=== PATIENT | female | born 1970 | race Caucasian/White ===

== ENCOUNTER → 2018-04-21 11:53 | Outpatient (CLI) | payer OTHER, SELFPAY ==
[2018-04-21 16:18] LABS: Ferritin 16 ng/mL (8-252); Free T3 2.2 pg/mL (2.18-3.98); Iron 120 ug/dL (50-170); Iron Binding Capacity,Total 387 ug/dL (250-450); T4 Free Direct 0.85 ng/dL (0.76-1.46); Thyroid Stim Hormone (TSH) 2.14 uIU/mL (0.358-3.74)
[2018-04-21 16:34] LABS: Vitamin B12 872 pg/mL (211-911); Vitamin D,25 Hydroxy 23.2 ng/mL (29.95-100.01)
[2018-04-21 17:39] LABS: Absolute Lymphocyte Count 1.88 X10^3/ul (0.83-4.51); Absolute Neutrophil Count 4.5 X10^3/uL (2.0-7.7); Basophil# 0.01 X10^3/uL; Basophil% 0.1 % (0-1); Eosinophil# 0.05 X10^3/uL; Eosinophils% 0.7 % (0-5); Hematocrit 39.7 % (37-47); Hemoglobin 12.6 g/dl (12.0-15.0); Lymphocyte # 1.88 X10^3/ul (4.0); Lymphocyte % 27.9 % (19-41); Mean Corp Hgb Conc 31.7 g/gl (32-36); Mean Corpuscular Hgb 31.3 pg (27.0-32.0); Mean Corpuscular Volume 98.5 fL (81-99); Mean Platelet Vol. 9.7 fl (6.2-12.0); Monocyte# 0.33 X10^3/uL; Monocyte% 4.9 % (0-10); Neutrophil # 4.45 X10^3/uL (2.7-7.7); Neutrophil % 66.3 % (47-70); Platelet Count 299 K/mm3 (150-450); RBC Distribution Width SD 42.9 fl (35.1-43.9); Red Blood Count 4.03 M/mm3 (4.2-5.4); White Blood Count 6.7 K/mm3 (4.4-11.0)
[2018-04-21 17:40] LABS: POSITIVE COUNT NO; POSITIVE DIFFERENTIAL NO; POSITIVE MORPHOLOGY NO
== END ==
PROVIDERS: Visit Provider Family Medicine
DX: E03.9 Hypothyroidism, unspecified (principal); R53.83 Other fatigue; E28.2 Polycystic ovarian syndrome
CPT/HCPCS: 36415; 82306; 82607; 82728; 83540; 83550; 84439; 84443; 84481; 85025

== ENCOUNTER → 2018-12-31 13:48 | Outpatient (CLI) | payer OTHER, SELFPAY ==
[2019-01-05 18:14] LABS: HPV Reflexed? NOT INDICATED
== END ==
PROVIDERS: Family Provider Family Medicine; PCP Family Medicine; Visit Provider Family Medicine
DX: Z12.4 Encounter for screening for malignant neoplasm of cervix (principal)
CPT/HCPCS: 88175; G0145

== ENCOUNTER → 2019-01-28 11:18 | Outpatient (CLI) | payer OTHER, SELFPAY ==
--- NOTE | 2019-01-28 11:20 | BI_ITS ---
MAMMOGRAPHY - BILATERAL SCREENING REASON FOR EXAM: Female, 48 years old. Routine annual screening examination. PERTINENT HISTORY: Non-contributory. TECHNIQUE: Digital bilateral breast cali (3D mammographic acquisition) in the CC and MLO projections. 2-D mediolateral oblique (MLO) and craniocaudad (CC) views of both breasts were obtained. CAD: Full Field Digital Mammography with Computer Added Detection was performed. COMPARISON: Comparison is made with prior outside examination dated February 04, 2017. FINDINGS: Breast Composition: The breasts are heterogeneously dense, which may obscure small masses. There is a 9.3 mm well-defined nodule with a what appears to be a central notch in the deep slightly medial aspect of the left breast. This is not visualized with certainty on the mediolateral oblique view. Correlation with ultrasound is recommended. No other significant abnormalities are identified. BI/SCREEN MAMM (CAD) W/CALI BILAT IMPRESSION: 19.3 mm well-defined nodule seen in the deep slightly medial portion of the left breast on the craniocaudad view. Correlation with ultrasound is recommended. ASSESSMENT CATEGORY: BIRADS Category 0: Incomplete. Need additional imaging evaluation. A letter regarding these results will be sent to the patient by the facility within 30 days. Approximately 10% of breast cancers are not detected by mammography. A normal mammogram should not delay biopsy of a clinically suspicious abnormality. [id number] Electronically Signed: Mckinley Cisneros, at 13:13 EST , Service support ,
== END ==
PROVIDERS: Family Provider Family Medicine; PCP Family Medicine; Referring Provider Family Medicine; Visit Provider Family Medicine
DX: Z12.31 Encounter for screening mammogram for malignant neoplasm of breast (principal)
CPT/HCPCS: 77063; 77067

== ENCOUNTER → 2019-02-04 10:28 | Outpatient (CLI) | payer OTHER, SELFPAY ==
--- NOTE | 2019-02-04 10:45 | US_ITS ---
STUDY: ULTRASOUND BREAST - LEFT REASON FOR EXAM: Female, 48 years old. TECHNIQUE: Axial and longitudinal images of the LEFT breast were performed with a high resolution ultrasound transducer. # OF IMAGES: 68 COMPARISON: None. FINDINGS: LEFT Breast: There is prominence of the fibroglandular tissue particularly around 11:00. However no evidence of any masses or cyst identified. US/Breast Complete Unilateral IMPRESSION: Negative study Electronically Signed: [place] Jayshree, at 12:30 EST Tel , Service support ,
== END ==
PROVIDERS: Family Provider Family Medicine; PCP Family Medicine; Referring Provider Family Medicine; Visit Provider Family Medicine
DX: N63.20 Unspecified lump in the left breast, unspecified quadrant (principal)
CPT/HCPCS: 76641

== ENCOUNTER → 2020-04-17 08:47 | Outpatient (CLI) | payer OTHER, SELFPAY ==
[2020-04-17 12:18] LABS: Absolute Lymphocyte Count 1.72 X10^3/uL (0.83-4.51); Absolute Neutrophil Count 4.2 X10^3/uL (2.0-7.7); Basophil# 0.03 X10^3/uL; Basophil% 0.5 % (0-1); Eosinophil# 0.07 X10^3/uL; Eosinophils% 1.1 % (0-5); Hematocrit 39.9 % (37-47); Hemoglobin 13.4 g/dL (12.0-15.0); Lymphocyte # 1.72 X10^3/ul (4.0); Lymphocyte % 26.8 % (19-41); Mean Corp Hgb Conc 33.6 g/dL (32-36); Mean Corpuscular Volume 95.2 fL (81-99); Mean Platelet Vol. 10.1 fl (6.2-12.0); Monocyte# 0.39 X10^3/uL; Monocyte% 6.1 % (0-10); NRBC Flagged by Analyzer 0 % (0-5); Neutrophil # 4.17 X10^3/uL (2.7-7.7); Platelet Count 306 K/mm3 (150-450); RBC Distribution Width CV 11.6 % (11.6-14.6); RBC Distribution Width SD 39.8 fl (35.1-43.9); Red Blood Count 4.19 M/mm3 (4.2-5.4); White Blood Count 6.4 K/mm3 (4.4-11.0)
[2020-04-17 12:31] LABS: Vitamin D,25 Hydroxy 39.6 ng/mL
[2020-04-17 12:43] LABS: Cholesterol 197 mg/dL (200); High Density Lipoprotein 73 mg/dL; Triglycerides 44 mg/dL; Very Low Density Lipoprotein 9 mg/dL (5-40)
[2020-04-17 16:08] LABS: Anion Gap 8 (5-15); BUN 12 mg/dL (7-18); BUN/Creat Ratio 15.1 RATIO (10-20); Chloride 107 mmol/L (98-107); Creatinine, Serum 0.79 mg/dL (0.55-1.02); EST Glomerular Filtration Rate 82 mL/min (>60); Est Glom Filt Rate - Afr Amer 100 mL/min (>60); Glucose 67 mg/dL (74-106); Potassium 4.1 mmol/L (3.5-5.1); Sodium Level 137 mmol/L (136-145)
== END ==
PROVIDERS: PCP Family Medicine; Visit Provider Family Medicine
DX: Z00.00 Encounter for general adult medical examination without abnormal findings (principal); E28.2 Polycystic ovarian syndrome; E55.9 Vitamin D deficiency, unspecified; D64.9 Anemia, unspecified
CPT/HCPCS: 36415; 80048; 80061; 82306; 85025

== ENCOUNTER → 2021-09-20 | Outpatient (CLI) | payer OTHER, SELFPAY ==
[2021-09-20 12:35] LABS: Absolute Lymphocyte Count 2.06 X10^3/uL (0.83-4.51); Absolute Neutrophil Count 4.8 X10^3/uL (2.0-7.7); Basophil# 0.02 X10^3/uL; Basophil% 0.3 % (0-1); Eosinophil# 0.11 X10^3/uL; Eosinophils% 1.5 % (0-5); Hematocrit 39.3 % (37-47); Lymphocyte # 2.06 X10^3/ul (0.83-4.51); Lymphocyte % 27.5 % (19-41); Mean Corp Hgb Conc 33.1 g/dL (32-36); Mean Corpuscular Hgb 32.7 pg (27.0-32.0); Mean Platelet Vol. 9.5 fl (6.2-12.0); Monocyte# 0.48 X10^3/uL; Monocyte% 6.4 % (0-10); NRBC Flagged by Analyzer 0 % (0-5); Neutrophil # 4.79 X10^3/uL (2.7-7.7); Neutrophil % 63.9 % (47-70); Platelet Count 388 K/mm3 (150-450); RBC Distribution Width CV 11.9 % (11.6-14.6); RBC Distribution Width SD 43.8 fl (35.1-43.9); Red Blood Count 3.97 M/mm3 (4.2-5.4); White Blood Count 7.5 K/mm3 (4.4-11.0)
[2021-09-20 12:54] LABS: Ferritin 13 ng/mL (8-252); T4 Free Direct 0.81 ng/dL (0.76-1.46); Thyroid Stim Hormone (TSH) 2.68 uIU/mL (0.358-3.74)
[2021-09-20 16:58] LABS: Vitamin D,25 Hydroxy 34.5 ng/mL
[2021-09-25 15:08] LABS: Age Gdln ACOG Testing 30-65 (.)
[2021-09-25 16:11] LABS: HPV APTIMA, High Risk Negative (Negative)
[2021-09-25 16:12] LABS: HPV Reflexed? YES, CHARGE PATIENT
== END | disposition home or self-care (01) ==
PROVIDERS: PCP Family Medicine; Referring Provider Family Medicine; Visit Provider Family Medicine
DX: N92.0 Excessive and frequent menstruation with regular cycle (principal); E28.2 Polycystic ovarian syndrome; Z12.4 Encounter for screening for malignant neoplasm of cervix
CPT/HCPCS: 36415; 82306; 82728; 84439; 84443; 85025; 87624; 88175; G0145

== ENCOUNTER → 2021-10-21 | Outpatient (CLI) | payer OTHER, SELFPAY ==
--- NOTE | 2021-10-21 12:14 | BI_ITS ---
MAMMOGRAPHY - BILATERAL SCREENING REASON FOR EXAM: Female, 51 years old. Routine annual screening examination. PERTINENT HISTORY: Non-contributory. TECHNIQUE: Digital bilateral breast cali (3D mammographic acquisition) in the CC and MLO projections. 2-D mediolateral oblique (MLO) and craniocaudad (CC) views of both breasts were obtained. CAD: Full Field Digital Mammography with Computer Added Detection was performed. COMPARISON: Comparison is made with prior study dated 01/28/2019. FINDINGS: Breast Composition: The breasts are heterogeneously dense, which may obscure small masses. Asymmetrical soft tissue density in the deep upper medial aspect of the right breast. Correlation with ultrasound is recommended. No other significant abnormalities are identified. BI/SCRN MAMM (CAD)W/CALI BILAT IMPRESSION: Asymmetrical soft tissue density in the deep upper medial aspect of the right breast. Correlation with ultrasound is recommended. ASSESSMENT CATEGORY: BIRADS Category 0: Incomplete. Need additional imaging evaluation. A letter regarding these results will be sent to the patient by the facility within 30 days. Approximately 10% of breast cancers are not detected by mammography. A normal mammogram should not delay biopsy of a clinically suspicious abnormality. [id number] Electronically Signed: Mckinley Cisneros MD at 13:38 EDT ,
== END | disposition home or self-care (01) ==
LOC: OPBI 12:13
PROVIDERS: PCP Family Medicine; Visit Provider Family Medicine
DX: Z12.31 Encounter for screening mammogram for malignant neoplasm of breast (principal)
CPT/HCPCS: 77063; 77067

== ENCOUNTER → 2021-10-28 | Outpatient (CLI) | payer OTHER, SELFPAY ==
--- NOTE | 2021-10-28 09:04 | BI_ITS ---
MAMMOGRAPHY - UNILATERAL DIAGNOSTIC: LEFT BREAST REASON FOR EXAM: Female, 51 years old. LT ABN MAMM PERTINENT HISTORY: Non-contributory. TECHNIQUE: Digital examination. Mediolateral oblique (MLO) and craniocaudad (CC) views of the breast were obtained. CAD: CAD was not performed on this study. COMPARISON: 10/21/2021, 01/28/2019 FINDINGS: Breast Composition: There are scattered areas of fibroglandular density. Focal compression views confirm a 2 cm irregular microlobulated equal density mass in the upper quadrant of the left breast posterior depth and ultrasound is recommended for further evaluation. No other significant abnormalities are identified. BI/DIAG MAMM W/CAD, UNILAT IMPRESSION: Further ultrasonographic evaluation recommended, as described above. ASSESSMENT CATEGORY: BIRADS Category 0: Incomplete. Need additional imaging evaluation. A letter regarding these results will be sent to the patient by the facility within 30 days. FOLLOW-UP RECOMMENDATION: Ultrasound recommended. (I) Approximately 10% of breast cancers are not detected by mammography. A normal mammogram should not delay biopsy of a clinically suspicious abnormality. Electronically Signed: Harvey Trujillo MD at 10:03 EDT ,
--- NOTE | 2021-10-28 09:04 | US_ITS ---
STUDY: ULTRASOUND BREAST - LEFT REASON FOR EXAM: Female, 51 years old. Abnormal screening mammogram. TECHNIQUE: Axial and longitudinal images of the LEFT breast were performed with a high resolution ultrasound transducer. # OF IMAGES: 30 COMPARISON: Diagnostic mammogram earlier today, screening mammogram 10/21/2021 FINDINGS: LEFT Breast: Heterogeneous pancreatic echotexture. At 10 o''clock, 5 cm from nipple, ultrasound demonstrates some heterogeneous breast parenchyma but no discrete mass. Correlation with breast MRI is recommended.: US/Breast Limited Unilateral IMPRESSION: Ultrasound does not confirm mass in the area of focal asymmetry in the left breast as seen on mammography and correlation with breast MRI is recommended. ASSESSMENT CATEGORY: BIRADS Category 0: Incomplete. Need additional imaging evaluation. A letter regarding these results will be sent to the patient by the facility within 30 days. Electronically Signed: Harvey Trujillo MD at 10:35 EDT ,
== END | disposition home or self-care (01) ==
LOC: OPBI 09:02
PROVIDERS: PCP Family Medicine; Visit Provider Family Medicine
DX: R92.8 Other abnormal and inconclusive findings on diagnostic imaging of breast (principal)
CPT/HCPCS: 76642; 77065

== ENCOUNTER → 2021-11-12 | Outpatient (CLI) | payer OTHER, SELFPAY ==
--- NOTE | 2021-11-12 11:06 | MRI_ITS ---
ACR Level 3 findings have been noted. An addendum which confirms receipt of the report will follow. STUDY: BILATERAL BREAST MR WITHOUT AND WITH CONTRAST REASON FOR EXAM: Female, 51 years old. ABNORMAL MAMM and amp; sono LEFT breast TECHNIQUE: Multi-sequence multi-echo imaging of both breasts was performed with a dedicated breast coil. T1-weighted and T2-weighted images were performed before the administration of contrast. T1-weighted images were also performed after the administration of IV Yes without complications. COMPARISON: Bilateral mammogram dated 10/2021, as well as left diagnostic mammogram and left breast ultrasound dated 10/28/2021. FINDINGS: RIGHT BREAST: Scattered fibroglandular densities. There are no abnormal enhancing masses or areas of non-mass enhancement in the right breast. LEFT BREAST: Within the upper inner quadrant of the left breast there is an area of increased parenchymal density on precontrast imaging. On postcontrast subtracted images this is ill-defined but demonstrates inhomogeneous contrast enhancement. This focus of contrast enhancement measures 1.21 cm transverse by 1.3 cm AP by 1.58 cm cranial caudal. This is seen at the 10:00 position and corresponds to both mammographic and ultrasonographic findings. [place] images series 0[address]91, [address], [place] [address] images 97 and 98. There are no enlarged or abnormal lymph nodes. There is no abnormality in the visualized regions of the chest or liver. MRI/Breast Bilateral W/O and W IMPRESSION: Enhancing mass lesion within the upper inner quadrant of the left breast at the 10:00 position with corresponding mammographic and ultrasonographic findings. Biopsy is advised. This could be performed with stereotactic technique, ultrasound guided technique or with MRI guidance. CATEGORY: BIRADS Category 4 suspicious. Electronically Signed: Laureano Watts MD, JOSE at 12:44 EDT ,
== END | disposition home or self-care (01) ==
PROVIDERS: PCP Family Medicine; Referring Provider Family Medicine; Visit Provider Family Medicine
DX: R92.8 Other abnormal and inconclusive findings on diagnostic imaging of breast (principal)
CPT/HCPCS: 77049; A9575; A4216; C8908

== ENCOUNTER → 2021-11-19 | Outpatient (CLI) | payer OTHER, SELFPAY ==
--- NOTE | 2021-11-19 | BRBX_PTH ---
PATIENT: KENNETH CORDON LOC: [facility] U#:[id number] AGE/SX: 51/F ROOM: RE11/19/[address]: Dr. Sidra Fitzgerald MD : 1970 BED: DIS: 11/19/2021 SPEC #: [id number] RECD: 11/19/21 13:03 STATUS: ELTON ANTWON #: [id number] PHYLLIS: 11/19/21 00:[address]: Sidra Fitzgerald DEPT: SURGICAL PATHOLOGY RECD BY: Patrick Reza ENTERED: 11/19/21 13:04 SP TYPE: BREAST BX OTHR DR: Dr. Shannen Allan MD Tissues: Left breast, NOS Procedures: Surgery Specimen Level IV HEADER OPERATION: Left breast biopsy PRE-OP DIAGNOSIS: Left breast mass TISSUE SUBMITTED: Left breast tissue 10 o?clock, 5 cm from nipple MICROSCOPIC DIAGNOSIS Left breast at 10 o?clock, core biopsy: Hyalinized stroma. No evidence of malignancy. AM:quin 11/20/2021 COMMENT Case has been reviewed in consultation with Dr. Acosta who concurs with the above diagnosis. IDC:SJ MICROSCOPIC DESCRIPTION Slides are reviewed. GROSS DESCRIPTION Received in fixative is one container labeled with the patient's name and designated left breast. The specimen consists of multiple elongated fragments of vaz-yellow fibroadipose tissue that in aggregate measure 2 x 0.5 x 0.1 cm. The entire specimen is submitted in one cassette. / SJ:quin 11/19/2021 TC:5 CPT: 72469
== END | disposition home or self-care (01) ==
LOC: LABSPEC 11:19
PROVIDERS: PCP Family Medicine; Visit Provider Surgery
DX: N63.20 Unspecified lump in the left breast, unspecified quadrant (principal)
CPT/HCPCS: 88305

== ENCOUNTER 2021-12-11 10:21 | Day surgery (SDC) | payer OTHER, SELFPAY ==
[2021-12-11] VITALS (7 sets, daily range): BP systolic 106–114; BP diastolic 64–86; PULSE 64–85; RESP 16; TEMP 36.6–37.3; O2SAT 96–100; BMI 29.9
[2021-12-11] MEDS: Lactated Ringers 1,000 ML 15 ML IV ×2 (11:01→14:05)
--- NOTE | 2021-12-11 11:09 | PCM.HP.STD ---
HPI - General HPI Narrative KENNETH CORDON, is a 51 F who presents for a left breast excisional biopsy due to previous biopsy showed hydrolyzed stroma no malignancy and ultrasound given a BI-RADS 4. Plan for excision for more definitive diagnosis. PFSH Medical History Alcohol use Anxiety Low iron Non-smoker Home Medications cholecalciferol (vitamin D3) 50 mcg (2,000 unit) capsule 50 mcg PO DAILY 11/19/21 [History Last Taken Unknown] ferrous sulfate 325 mg (65 mg iron) tablet (iron) 325 mg PO DAILY 11/19/21 [History Last Taken Unknown] loratadine 10 mg tablet 10 mg PO DAILY 11/19/21 [History Last Taken Unknown] multivitamin 1 tab PO DAILY 11/19/21 [History Last Taken Unknown] citalopram 20 mg tablet 20 mg PO QHS 12/10/21 [History Last Taken Unknown] Allergy/AdvReac Type Severity Reaction Status Date / Time Penicillins Allergy Mild PT UNSURE Verified 12/11/21 10:53 OF REACTION tetracycline Allergy Mild PT UNSURE Verified 12/11/21 10:53 OF REACTION Family History (Updated 11/19/21 @ 10:02 by Kerrie Jose) Mother Asthma Thyroid disorder Grandmother Colon cancer CAD (coronary artery disease) Diabetes Hypertension Surgical History (Updated 12/10/21 @ 13:23 by Sruthi Tong) H/O gastric sleeve H/O pelvic surgery Hx of inguinal hernia repair Hx of tonsillectomy Hx of tubal ligation Social History (Updated 11/19/21 @ 10:02 by Kerrie Jose) adopted: No Smoking Status: Never smoker alcohol intake: current Vital Signs Vital Signs Vital Signs: 12/11/21 10:53 12/11/21 10:53 Temperature 97.9 F Temperature Source Temporal Pulse Rate 64 Respiratory Rate 16 Respiratory Pattern Normal Blood Pressure 109/67 Blood Pressure Mean 81 Blood Pressure Source Monitor Blood Pressure Position Semi-Fowlers Blood Pressure Location Left Arm Pulse Ox 100 Oxygen Delivery Method Room Air Weight Weight: 174 lb 2.643 oz Body Mass Index (BMI) 29.9 Physical Exam Const alert, oriented x3 and no apparent distress HEENT normocephalic and head/scalp atraumatic Chest Chest Narrative: Left breast: biopsy site well-healed about 10:00 5 cm from the nipple. Nontender Resp normal respiratory effort Cardio regular rate GI soft to palpation and non-tender; Negative for non-distended Palpation: Negative for guarding Extremity no clubbing, cyanosis or edema Neuro CN's II-XII intact bilaterally Psych mental status grossly normal Assessment & Plan Assessment/Plan (1) Breast mass, left: PLAN: Plan Discussed the procedure of excisional breast biopsy with ultrasound needle localization in the OR. Patient understood risks and benefits and had no further questions this time. Patient is aware that possibly could need further surgery depending on pathology as well. Sidra Fitzgerald M.D. Pager: [phone] [facility] [address] [place] [address], [address] [place] [address] Office: [phone]
--- NOTE | 2021-12-11 12:00 | BREAST_PTH ---
PATIENT: KENNETH CORDON LOC: [facility] U#:[id number] AGE/SX: 51/F ROOM: RE12/11/[address]: Dr. Sidra Fitzgerald MD : 1970 BED: DIS: 12/11/2021 SPEC #: [id number] RECD: 12/11/21 13:22 STATUS: ELTON ANTWON #: [id number] PHYLLIS: 12/11/21 12:[address]: Sidra Fitzgerald DEPT: SURGICAL PATHOLOGY RECD BY: Tere Dalton ENTERED: 12/11/21 13:26 SP TYPE: BREAST OTHR DR: Dr. Shannen Allan MD Tissues: Left breast, NOS Procedures: Surgery Specimen Level V HEADER OPERATION: Ultrasound-guided excision breast biopsy PRE-OP DIAGNOSIS: Left breast mass TISSUE SUBMITTED: Left breast mass, long stitch ? lateral, short stitch - superior MICROSCOPIC DIAGNOSIS Left breast mass, excisional biopsy: Benign breast tissue with focal area of dense fibrosis. Negative for atypia or malignancy. See comment. SJ:rg 12/16/2021 COMMENT The findings are suggestive of hamartoma. Correlation with clinical, radiologic findings and appropriate follow-up are necessary. Please make reference to previous specimen ([id number]) left breast at 10 o?clock, core biopsy with diagnosis of ?hyalinized stroma.? MICROSCOPIC DESCRIPTION Slides are reviewed. GROSS DESCRIPTION Received in fixative is one container labeled with the patient's name and designated left breast mass, long stitch - lateral, short stitch - superior. The specimen consists of a piece of fibroadipose tissue with needle localization measuring 4.5 x 3 x 2.5 cm. The specimen is inked as follows: anterior - yellow, posterior - black, superior - blue, inferior - green, medial - red and lateral - orange. Sections reveal an ill-defined vaz-white area close to posterior margin. No well-defined mass is noted. The entire specimen is submitted in 12 cassettes from medial to lateral margin. Cassette 1 contains most medial portion of the specimen. Cassette 12 contains most lateral portion of the specimen. Sections are submitted after additional fixation. / KWASI:quin 12/12/2021 TC:5 CPT: 11716
[2021-12-11] MEDS: Clindamycin 900 MG/50 ML BAG 75 MG IV (12:31)
--- NOTE | 2021-12-11 13:15 | BI_ITS ---
SURGICAL BREAST SPECIMEN RADIOGRAPH CLINICAL: Document presence of tissue clip marker in biopsy specimen. FINDINGS: Specimen shows presence of tissue clip marker. Electronically Signed: Mckinley Cisneros MD at 14:14 EDT , BI/Breast Biopsy Specimen IMPRESSION: undefined
--- NOTE | 2021-12-11 13:16 | PCM.OPRPT ---
Report of Operation Date of Procedure: 12/11/21 Pre-Operative Diagnosis: Left breast mass Post-Operative Diagnosis: Same Surgery/Procedure Performed:: Ultrasound guided needle localization excisional left breast mass Surgeon: Sidra Fitzgerald metalsmith apprentice: Jamee Jones Type of Anesthesia: General/Supplemental Anesthesiologist: Anmol Gonzalez Special Medications: Clindamycin 900 mg IV x1 Specimen's removed: left breast mass Estimated Blood Loss (mL): < 10 cc Description of Procedure: Patient was brought into the operating room placed spine on the operating table. Timeout was completed verifying correct patient, procedure, site, positioning, and special equipment prior to beginning procedure. General anesthesia was induced. The left breast was prepped and draped in usual sterile fashion. Ultrasound was used to localize the lesion, the Kopan's needle was passed inferior to the left breast mass and Kopan's wire placed. A curvilinear incision was planned and made with a 15 blade scalpel. Flaps were raised and the guidewire was followed to the inferior portion of the mass. Electrocautery was used to dissect the mass. Clips were used for small vessel. Hemostasis assured. The specimen was sent to mammography for x-rays which did verify guidewire as well as clip. Cavity was irrigated with sterile water. Interrupted 3 oh subdermal Vicryl sutures used to close incision with 4-0 Monocryl at the skin with Steri-Strips. OpSite and gauze fluffs were placed with a surgical bra. Patient tolerated procedure well was taken to the postanesthesia care in stable condition. Complications none
--- NOTE | 2021-12-11 13:18 | EX.PCM.DISCH ---
Discharge Instructions Diet Discharge Diet: No restrictions Activity Discharge Activity: May Not Drive (for 2-3 days or while taking narcotic pain meds.) May shower in (days): 1 Lifting Restrictions: 15 pounds for 1 week. Dressing / Incision Call your doctor if your incision/area has: Continuous Slow Oozing, Sudden Increased Bleeding, Increased Pain/ Swelling and Increased Redness Call your doctor if you observe: Fever of 101 or Higher Suture Line Care: Avoid Pulling/Pushing and Avoid Pinching/Bending Remove Dressing in: 1 day Additional Dressing/Incision Instructions:: Remove bulky dressing tomorrow. May leave any op-site dressing for 2-3 days. Okay to remove Steri-Strips from the breast incision in 7 to 10 days with annual follow-up. Follow Up Care Please Follow Up With: Sidra Fitzgerald MD When: Please call [phone] for an appointment to be seen in 2 week. Test Results: Test results from this visit will be discussed in further detail at your follow-up appointment, if applicable. Discharge Plan Admission Attending Provider: Sidra Fitzgerald Primary Care Provider: Shannen Allan Discharge Orders/Prescriptions Prescriptions: New oxycodone 5 mg capsule 5 mg PO Q6H PRN (Reason: pain) 2 Days Qty: 5 0RF Continued cholecalciferol (vitamin D3) 50 mcg (2,000 unit) capsule 50 mcg PO DAILY ferrous sulfate [iron] 325 mg (65 mg iron) tablet 325 mg PO DAILY loratadine 10 mg tablet 10 mg PO DAILY multivitamin Tablet 1 tab PO DAILY citalopram 20 mg Tablet 20 mg PO QHS Referrals / Follow Up: Shannen Allan MD [Primary Care Provider] - Disposition Disposition (needs filled in before D/C Order can be placed): Home, Self Care
== END 2021-12-11 15:10 | disposition home or self-care (01) ==
LOC: SDC 10:22 → AC 10:23
PROVIDERS: PCP Family Medicine; Visit Provider Surgery
PROC: (CPT 19101; principal; 2021-12-11 11:45)
DX: N63.20 Unspecified lump in the left breast, unspecified quadrant (principal); Z79.2 Long term (current) use of antibiotics; F41.9 Anxiety disorder, unspecified; Z90.3 Acquired absence of stomach [part of]; Z87.19 Personal history of other diseases of the digestive system
CPT/HCPCS: 19101; 00400; 76098; 88307; J7120; J2405

== ENCOUNTER 2022-09-12 08:06 | Day surgery (SDC) | payer OTHER, SELFPAY ==
[2022-09-12 08:38] VITALS: BP 102/77; PULSE 67; RESP 16; TEMP 36.9; O2SAT 98; BMI 29.5
[2022-09-12] MEDS: Lactated Ringers 1,000 ML 15 ML IV (08:45)
--- NOTE | 2022-09-12 09:55 | H&P.OPEN ---
HPI - General HPI Narrative KENNETH CORDON, is a 52 F who presents for screening colonoscopy. The patient is never had a colonoscopy in the past. She denies any abdominal pain or blood in stool. She does have family history of colon cancer in a grandparent. [facility] Medical History (Updated 09/08/22 @ 13:55 by Sruthi Tong) Alcohol use Allergic rhinitis Anxiety Heartburn Low iron Migraine headache Non-smoker PCOS (polycystic ovarian syndrome) Home Medications cholecalciferol (vitamin D3) 50 mcg (2,000 unit) capsule 50 mcg PO DAILY 11/19/21 [History Last Taken Unknown] ferrous sulfate 325 mg (65 mg iron) tablet (iron) 325 mg PO DAILY 11/19/21 [History Last Taken Unknown] multivitamin 1 tab PO DAILY 11/19/21 [History Last Taken Unknown] citalopram 20 mg tablet 20 mg PO QHS 12/10/21 [History Last Taken Unknown] vitamin B complex 1 tab PO DAILY 05/05/22 [History Last Taken Unknown] cetirizine 10 mg tablet (Zyrtec) 10 mg PO DAILY 09/08/22 [History Last Taken Unknown] Allergy/AdvReac Type Severity Reaction Status Date / Time Penicillins Allergy Unknown Hives Verified 09/12/22 08:37 tetracycline Allergy Unknown Vomiting Verified 09/12/22 08:37 Family History Mother Asthma Thyroid disorder Grandmother Colon cancer CAD (coronary artery disease) Diabetes Hypertension Surgical History (Updated 09/08/22 @ 13:55 by Sruthi Tong) H/O gastric sleeve H/O pelvic surgery History of Hx of breast biopsy Hx of inguinal hernia repair Hx of tonsillectomy Hx of tubal ligation Social History (Updated 05/05/22 @ 15:45 by Eulalia Smith) adopted: No household members: spouse current occupational status: employed Smoking Status: Never smoker alcohol intake: current Past Medical/Surgical History Planned Operation Planned Operative Procedure/s: CSCOPE OA Previous Hospitalizations/Surgeries HX Hospitalizations: No Any Problems With Anesthesia: No You/Your Family Experience Fever (Hyperthermia) With Anes: No Cholinesterase deficiency: No Cardiovascular Hx Hypertension: No Respiratory Hx Sleep Apnea: No Hx Respiratory Tract Infection/Cold (presently): No Do You Snore Loudly (louder than talking or can be heard): No Do You Often Feel Tired/ Fatigued/ Sleepy Dring Daytime?: No Has Anyone Observed You Stop Breathing During Sleep?: No Result (for STOP score): Negative Smoking Status: Never smoker Neurological Does patient have nerve stimulator: No Reproduction : No Miscellaneous Recent Exposure to Contagious Disease: No Allergies Penicillins Allergy (Unknown, Verified 09/12/22 08:37) Hives tetracycline Allergy (Unknown, Verified 09/12/22 08:37) Vomiting Discharge Is Pt Admitted From a Senior Living, or a Intermediate: No After D/C, Where Do you Plan to Go: Return Home Vital Signs Vital Signs Vital Signs: 09/12/22 08:38 09/12/22 08:38 Temperature 98.5 F Temperature Source Temporal Pulse Rate 67 Respiratory Rate 16 Respiratory Pattern Normal Blood Pressure 102/77 Blood Pressure Mean 85 Pulse Ox 98 Oxygen Delivery Method Room Air Weight Weight: 171 lb 15.369 oz Body Mass Index (BMI) 29.5 Physical Exam Const alert and oriented x3 HEENT normocephalic Eyes PERRL Resp normal respiratory effort and normal air movement Cardio regular rate and regular rhythm GI soft to palpation, non-tender and non-distended Extremity normal to inspection Assessment & Plan Assessment/Plan (1) Encounter for screening for malignant neoplasm of colon: PLAN: I explained endoscopy in detail to the patient. I explained the risks including but not limited to stroke or heart attack with anesthesia, perforation of the GI tract, bleeding, infection. I explained that any of these could necessitate further emergency surgery. The patient understands and all questions were answered sufficiently. The patient wishes to proceed with procedure. Geremias Fonseca MD Pager: [facility] [address] [place] [address], [address] [place] [address] Office: Surgery Risks - Colonoscopy Risks Include but are not Limited To: Risks include but are not limited to: Bleeding, perforation requiring further surgery, inability to complete colonoscopy requiring barium enema.
--- NOTE | 2022-09-12 10:17 | OP.COLON_ITS ---
Patient Name: Maris Wright Procedure Date: 09/12/2022 9:49 AM Date of : 1970 Age: 52 Procedure: Colonoscopy Indications: Screening for colorectal malignant neoplasm Providers: Geremias Fonseca MD Referring MD: Geremias Fonseca MD Medicines: Monitored Anesthesia Care Patient Profile: This is a 52 year old female. Refer to note in patient chart for documentation of history and physical. Last Colonoscopy: none. The patient's first colonoscopy is today. Complications: No immediate complications. Procedure: Pre-Anesthesia Assessment: - Prior to the procedure, a History and Physical was performed, and patient medications and allergies were reviewed. The patient's tolerance of previous anesthesia was also reviewed. The risks and benefits of the procedure and the sedation options and risks were discussed with the patient. All questions were answered, and informed consent was obtained. Prior Anticoagulants: The patient has taken no previous anticoagulant or antiplatelet agents. After reviewing the risks and benefits, the patient was deemed in satisfactory condition to undergo the procedure. After I obtained informed consent, the scope was passed under direct vision. Throughout the procedure, the patient's blood pressure, pulse, and oxygen saturations were monitored continuously. The pediatric colonoscope was introduced through the anus and advanced to the cecum, identified by appendiceal orifice and ileocecal valve. The colonoscopy was performed without difficulty. The patient tolerated the procedure well. The quality of the bowel preparation was good. Scope In: 10:03:19 AM Scope Withdrawal Time 0 hours 6 minutes 2 seconds Scope Out: 10:15:39 AM Total Procedure Duration Time 0 hours 12 minutes 20 seconds Findings: The entire examined colon appeared normal on direct and retroflexion views. Impression: - The entire examined colon is normal on direct and retroflexion views. - No specimens collected. Recommendation: - Discharge patient to home. - Resume previous diet. - Continue present medications. - Repeat colonoscopy in 10 years for screening purposes. Procedure Code(s): --- Professional --- 45687, Colonoscopy, flexible; diagnostic, including collection of specimen(s) by brushing or washing, when performed (separate procedure) Diagnosis Code(s): --- Professional --- Z12.11, Encounter for screening for malignant neoplasm of colon CPT copyright 2017 [employer]. All rights reserved. The codes documented in this report are preliminary and upon medical laboratory specialist review may be revised to meet current compliance requirements. Geremias Fonseca MD 09/12/2022 10:17:25 AM This report has been signed electronically. Number of Addenda: 0 Note Initiated On: 09/12/2022 9:49 AM
--- NOTE | 2022-09-12 10:18 | OP.CCLET_ITS ---
09/12/2022 Shannen Allna [facility] [address] [address] Re : Colonoscopy procedure for Maris Wright Dear Dr. Allan This procedure was performed on Monday, September 12, 2022. My impressions and recommendations are as follows: Impressions : - The entire examined colon is normal on direct and retroflexion views. - No specimens collected. Recommendations : - Discharge patient to home. - Resume previous diet. - Continue present medications. - Repeat colonoscopy in 10 years for screening purposes. My findings are described in the full procedure note, which is enclosed. If I can be of further assistance, please feel free to contact me at Doctor phone number(s): , Work: . Sincerely, Geremias Fonseca MD 09/12/2022 10:17:25 AM This report has been signed electronically.
[2022-09-12 10:20] VITALS: BP 102/77; BP 132/81; PULSE 72; RESP 16; TEMP 36.5; O2SAT 98
[2022-09-12 10:25] VITALS: BP 102/77; BP 105/68; PULSE 68; RESP 16; O2SAT 99
[2022-09-12 10:30] VITALS: BP 102/77; BP 112/73; PULSE 68; RESP 16; O2SAT 99
[2022-09-12 10:35] VITALS: BP 102/77; BP 109/73; PULSE 64; RESP 16; TEMP 36.2; O2SAT 100
[2022-09-12 11:15] VITALS: BP 102/77
== END 2022-09-12 11:16 | disposition home or self-care (01) ==
LOC: EN 08:07 → AC 08:08
PROVIDERS: PCP Family Medicine; Referring Provider Family Medicine; Visit Provider Surgery
PROC: 0DJD8ZZ Inspection of Lower Intestinal Tract, Via Natural or Artificial Opening Endoscopic (ICD-10-PCS; CPT 45378; principal; 2022-09-12 09:10)
DX: Z12.11 Encounter for screening for malignant neoplasm of colon (principal); Z80.0 Family history of malignant neoplasm of digestive organs; Z98.84 Bariatric surgery status
CPT/HCPCS: 45378; J7120; J2405

== ENCOUNTER → 2022-10-03 | Outpatient (CLI) | payer OTHER, SELFPAY ==
[2022-10-03 17:24] LABS: Free T3 2.1 pg/mL (2.18-3.98); T4 Free Direct 0.71 ng/dL (0.76-1.46); T4 Total, Thyroxin 6.7 ug/dL (4.8-13.9); Thyroid Stim Hormone (TSH) 1.94 uIU/mL (0.358-3.74)
[2022-10-07 16:19] LABS: Thyroglobulin Antibody < 1.0 IU/mL (0.0-0.9); Thyroid Peroxidase AB < 9 IU/mL (0-34); Thyroxin Bind Glob (TBG) 14 ug/mL (13-39)
== END | disposition home or self-care (01) ==
LOC: LABSPEC 15:39
PROVIDERS: PCP Family Medicine; Referring Provider Family Medicine; Visit Provider Family Medicine
DX: E28.2 Polycystic ovarian syndrome (principal); N92.0 Excessive and frequent menstruation with regular cycle
CPT/HCPCS: 82784; 84432; 84436; 84439; 84442; 84443; 84481; 86376; 86800

== ENCOUNTER → 2022-12-16 | Outpatient (CLI) | payer OTHER, SELFPAY ==
[2022-12-16 16:31] LABS: Cholesterol 213 mg/dL (200); Glucose 82 mg/dL (74-106); High Density Lipoprotein 78 mg/dL; Triglycerides 60 mg/dL; Very Low Density Lipoprotein 12 mg/dL (5-40)
== END | disposition home or self-care (01) ==
LOC: BFHLAB 13:08
PROVIDERS: PCP Family Medicine; Referring Provider Family Medicine; Visit Provider Family Medicine
DX: Z00.00 Encounter for general adult medical examination without abnormal findings (principal)
CPT/HCPCS: 36415; 80061; 82947

== ENCOUNTER → 2022-12-19 | Outpatient (CLI) | payer OTHER, SELFPAY ==
--- NOTE | 2022-12-19 12:26 | BI_ITS ---
MAMMOGRAPHY - BILATERAL SCREENING REASON FOR EXAM: Female, 52 years old. Routine annual screening examination. PERTINENT HISTORY: Non-contributory. Prior left excisional breast biopsy. TECHNIQUE: Digital bilateral breast cali (3D mammographic acquisition) in the CC and MLO projections. 2-D mediolateral oblique (MLO) and craniocaudad (CC) views of both breasts were obtained. CAD: Full Field Digital Mammography with Computer Added Detection was performed. COMPARISON: Comparison is made with prior study October 21, 2021 and December 11, 2021. FINDINGS: Breast Composition: The breasts are heterogeneously dense, which may obscure small masses. There are no dominant masses or suspicious calcifications. Tissue clip markers are seen in the upper deep central portion of the left breast. The previously seen nodular densities are much smaller in size. No other significant abnormalities are identified. BI/SCRN MAMM (CAD)W/CALI BILAT IMPRESSION: Stable bilateral screening mammogram. Yearly follow-up mammogram recommended. (A) ASSESSMENT CATEGORY: BIRADS Category 2: Benign. A letter regarding these results will be sent to the patient by the facility within 30 days. Approximately 10% of breast cancers are not detected by mammography. A normal mammogram should not delay biopsy of a clinically suspicious abnormality. [id number] Electronically Signed: Mckinley Cisneros MD at 13:49 EDT ,
== END | disposition home or self-care (01) ==
LOC: OPBI 12:25
PROVIDERS: PCP Family Medicine; Referring Provider Family Medicine; Visit Provider Family Medicine
DX: Z12.31 Encounter for screening mammogram for malignant neoplasm of breast (principal)
CPT/HCPCS: 77063; 77067

== ENCOUNTER → 2024-01-30 | Outpatient (CLI) | payer OTHER, SELFPAY ==
[2024-01-30 12:30] LABS: Cholesterol 204 mg/dL (200); Glucose 86 mg/dL (74-106); High Density Lipoprotein 73 mg/dL; Triglycerides 42 mg/dL; Very Low Density Lipoprotein 8 mg/dL (5-40)
== END | disposition home or self-care (01) ==
LOC: LAB 11:39
PROVIDERS: PCP Family Medicine; Referring Provider Family Medicine; Visit Provider Family Medicine
DX: Z00.00 Encounter for general adult medical examination without abnormal findings (principal)
CPT/HCPCS: 36415; 80061; 82947

== ENCOUNTER → 2024-08-29 | Outpatient (CLI) | payer OTHER, SELFPAY ==
--- NOTE | 2024-08-29 12:00 | BI_ITS ---
EXAM: SCRN MAMM (CAD)W/CALI BILAT DATE: 08/29/2024 CLINICAL HISTORY: F, Age 53 y/o , SCREENING Prior left excisional breast biopsy and left ultrasound-guided breast biopsy. No known family history. BREAST CANCER RISK ASSESSMENT: Not assessed. TECHNIQUE: Bilateral screening digital breast tomosynthesis with 2D and 3D images. Computer aided detection. COMPARISON: Prior exam(s) dated December 19, 2022.. FINDINGS: TISSUE DENSITY: The breast tissue is heterogeneously dense, which may obscure small masses. Bilateral Breast Mammographic Findings: No significant masses, calcifications or other abnormalities are identified. Stable asymmetry of breast tissue were more breast tissue is seen in the upper-outer quadrant of the left breast as compared to the right side. 2 adjacent tissue clip markers are seen in the upper central portion of the left breast. No suspicious masses, areas of developing architectural distortion, or suspicious calcifications. There has been no significant interval change. BI/SCRN MAMM (CAD)W/CALI BILAT IMPRESSION: Stable examination. OVERALL FINAL ASSESSMENT BI-RADS 2: BENIGN RECOMMEND ANNUAL MAMMOGRAPHIC SCREENING. RECOMMENDATION: Routine annual follow-up in 1 Year A letter with findings and recommendations will be mailed to the patient. Reading Location: [place] [id number]
== END | disposition home or self-care (01) ==
LOC: OPBI 11:58
PROVIDERS: PCP Family Medicine; Referring Provider Family Medicine; Visit Provider Family Medicine
DX: Z12.31 Encounter for screening mammogram for malignant neoplasm of breast (principal)
CPT/HCPCS: 77063; 77067